=== PATIENT | male | born 1975 | race Caucasian/White ===

== ENCOUNTER → 2018-09-14 | Outpatient (CLI) | payer BC ==
[2018-09-14 12:32] LABS: Basophils % (A) 0 %; Eosinophils # (A) 0.1 k/uL (0-0.7); Eosinophils % (A) 1 %; HCT 52.4 % (39.0-53.0); HGB 17.5 gm/dL (13.0-17.5); Lymphocytes # (A) 0.4 k/uL (1.0-4.8); Lymphocytes % (A) 4 %; MCH 31.4 pg (25.0-35.0); MCHC 33.3 g/dL (31.0-37.0); MCV 94.2 fL (80.0-100.0); Mean Platelet Volume 6.7; Monocytes # (A) 0.2 k/uL (0-1.0); Monocytes % (A) 3 %; Neutrophils # (A) 7.8 k/uL (1.3-7.7); Neutrophils % (A) 91 %; Platelet Count 282 k/uL (150-450); RBC 5.56 m/uL (4.30-5.90); RDW 12.3 % (11.5-15.5); WBC 8.5 k/uL (3.8-10.6)
[2018-09-14 12:48] LABS: ALT 36 U/L (21-72); AST 19 U/L (17-59); Albumin 4.4 g/dL (3.5-5.0); Alkaline Phosphatase 67 U/L (38-126); Amylase 40 U/L (30-110); Anion Gap 10 mmol/L; Blood Urea Nitrogen 24 mg/dL (9-20); Calcium 9.4 mg/dL (8.4-10.2); Carbon Dioxide 24 mmol/L (22-30); Chloride 104 mmol/L (98-107); Glucose 138 mg/dL (74-99); Lipase 14 U/L (23-300); Potassium 4.2 mmol/L (3.5-5.1); Sodium 138 mmol/L (137-145); Total Bilirubin 0.8 mg/dL (0.2-1.3); Total Protein 7.2 g/dL (6.3-8.2)
--- NOTE | 2018-09-14 12:56 | CT ---
EXAMINATION TYPE: CT abdomen pelvis w con DATE OF EXAM: 09/14/2018 COMPARISON: None HISTORY: Abdominal pain, vomiting x2 days CT DLP: 557.2 mGycm Automated exposure control for dose reduction was used. TECHNIQUE: Helical acquisition of images was performed from the lung bases through the pelvis. CONTRAST: Performed without Oral Contrast and with IV Contrast, patient injected with 100 mL of Isovue 300. FINDINGS: LUNG BASES: No significant abnormality is appreciated. LIVER/GB: No significant abnormality is appreciated. PANCREAS: No significant abnormality is seen. SPLEEN: There is a punctate nonspecific hypoattenuated subcentimeter lesion on series 3 image 32 taylor uring approximately 4 mm. Small splenule seen adjacent to the nikolski spleen. Spleen is nonenlarged. ADRENALS: There is a heterogenous large left adrenal gland mass measuring least 4.8 x 6.0 x 6.5 cm. N o internal calcifications are seen. This extends inferiorly to abut the renal vein however no invasio n is seen at this time. The right adrenal gland is unremarkable. KIDNEYS: There is a 9 mm left upper pole renal cyst. Remainder the kidneys enhance symmetrically.. FREE AIR: No free air is visualized. ADENOPATHY: No greater than 1 cm short axis lymph nodes within the abdomen or pelvis. Specifically n o local adenopathy is seen surrounding the left suprarenal mass. REPRODUCTIVE ORGANS: Heterogenous with central zone calcifications. URINARY BLADDER: Circumferential urinary bladder wall thickening is seen, however this may relate to incomplete distention. OSSEOUS STRUCTURES: No significant abnormality is seen. BOWEL: There is diffuse large bowel mucosal hyperemia and minimal inflammatory fat stranding of the transverse colon and ascending colon. Numerous diverticula are seen without focal short segment infla mmatory fat stranding. Appendix is air-filled and within normal limits. There are prominent but nondi lated loops of small bowel containing bowel wall hyperemia and air-fluid levels. There is no abrupt t ransition point noted. Some decompressed loops of small bowel are seen within the left mid abdomen wi th apparent bowel wall thickening. IMPRESSION: 1. ACUTE FINDINGS ARE MOST SUGGESTIVE OF COLITIS WITH REACTIVE SMALL BOWEL ILEUS AND/OR ENTERITIS. NO PNEUMOPERITONEUM OR INTRA-ABDOMINAL ABSCESS. 2. LARGE 6.5 CM LEFT ADRENAL GLAND HETEROGENOUS MASS. GIVEN ITS LARGE SIZE AND COMPLEXITY MALIGNANT N EOPLASM SUCH ADRENAL CORTICAL CARCINOMA, METASTASIS OR OTHER ETIOLOGY SUCH PHEOCHROMOCYTOMA ARE SUSPECTED. BENIGN NEOPLASMS ARE POSSIBLE BUT LESS LIKELY. THREE-PHASE ABDOMINAL CT CAN ASSESS FOR DE GREE OF ENHANCEMENT. ADDITIONALLY CORRELATION WITH LABORATORY VALUES IS RECOMMENDED TO EXCLUDE PHEOCH ROMOCYTOMA PRIOR TO CONSIDERATION OF BIOPSY.
== END | disposition home or self-care (01) ==
LOC: RADCTMAIN 11:27
PROVIDERS: ATTEND Nurse Practitioner Family
DX: E27.9 Disorder of adrenal gland, unspecified (principal)
CPT/HCPCS: 80053; 82150; 83690; 85025; 74177; Q9967

== ENCOUNTER → 2021-07-22 | Outpatient (CLI) | payer BC ==
--- NOTE | 2021-07-22 23:40 | CT ---
EXAMINATION TYPE: CT abdomen pelvis w con DATE OF EXAM: 07/22/2021 COMPARISON: 09/14/2018 HISTORY: abdominal pain and distention, hx of hernia CT DLP: 639.4 mGycm Automated exposure control for dose reduction was used. TECHNIQUE: Helical acquisition of images was performed from the lung bases through the pelvis. CONTRAST: Performed with Oral Contrast and with IV Contrast, patient injected with 100 mL of Isovue 300. FINDINGS: LUNG BASES: Normal. LIVER: Normal. BILIARY SYSTEM: Normal. PANCREAS: Normal. SPLEEN: Normal. ADRENALS: The previously demonstrated 6 cm heterogenous left adrenal mass is no longer seen on curren t exam. There is residual left adrenal tissue which is heterogenous and somewhat nodular. Right adren al gland normal. KIDNEYS: No hydronephrosis. Too small to catheterize hypodense lesion of the upper pole of the left k [place]. BOWEL: There is increased submucosal fat of the ascending colon and thickening of the terminal ileum . No evidence of bowel obstruction. Colonic diverticulosis. No acute diverticulitis. Appendix normal. PERITONEUM: No pneumoperitoneum. No free fluid. No evidence of abdominal hernia. LYMPH NODES: No lymphadenopathy. PELVIS: There is marked circumferential thickening of the urinary bladder. There is a right urinary b ladder diverticulum. Prostate appears relatively normal in size. VASCULATURE: No abdominal aortic aneurysm. MUSCULOSKELETAL: Degenerative changes of the spine. IMPRESSION: 1. Increased some mucosal fat deposition of the ascending colon and thickened terminal ileum. Findin gs may represent infectious or inflammatory inflammatory bowel disease such as Crohn disease. 2. Chronic marked circumferential thickening of the urinary bladder and urinary bladder diverticulum . Findings may represent chronic urinary bladder outlet obstruction. 3. The previously demonstrated 6 cm left adrenal mass seen on 2018 comparison is not seen on current exam. There is left adrenal residual tissue which is heterogenous and somewhat nodular.
== END | disposition home or self-care (01) ==
LOC: RADCTMAIN 16:37
PROVIDERS: ATTEND Family Medicine
DX: N32.3 Diverticulum of bladder (principal)
CPT/HCPCS: 74177; Q9967